=== PATIENT | female | born 1990 | race Caucasian/White ===

== ENCOUNTER 2021-11-15 00:45 | Emergency (ER) | payer OTHER ==
[2021-11-15] MEDS ORDERED: Lidocaine Viscous Sol 2% 15 ml UD Cup ONE (01:12)
[2021-11-15] MEDS ORDERED: Mag-Al Plus 1200 MG/1200 MG/120 MG/30 ML UDCUP ONE (01:12)
[2021-11-15 01:34] LABS: #Eosinphils 0.2 10x3/uL (0.0-0.5); #Monocytes 0.4 10x3/uL (0.0-1.1); #Neutrophils 4.3 10x3/uL (1.5-8.4); %Basophils 0.5 % (0.0-2.0); %Eosinophils 1.9 % (0.0-6.0); %Lymphocytes 37.7 % (18.0-47.0); %Monocytes 4.8 % (0.0-10.0); Hemoglobin 12.8 g/dL (12.0-15.5); Mean Corpuscular HGB CONC 33.7 g/dL (32.0-36.0); Mean Corpuscular Hemoglobin 28.6 pg (27.0-33.0); Mean Corpuscular Volume 84.8 fl (81.6-98.3); Mean Platelet Volume 9.4 fl (7.4-10.4); Platelet Count 285 10x3/uL (150-450); Red Blood Cell (RBC) Count 4.48 10x6/uL (3.90-5.03); White Blood Cell (WBC) Count 7.9 10x3/uL (3.5-10.5)
[2021-11-15 01:39] LABS: BHCG - Serum Negative (NEGATIVE); Pregs Control Background? CLEAR/WHITE (CLR/WHITE); Pregs Control Bar Appear? YES (CONTROL BAR)
[2021-11-15 01:40] LABS: ALT (SGPT) 12 U/L (8-55); AST (SGOT) 12 U/L (5-34); Albumin 4.2 g/dL (3.5-5.0); Alkaline Phosphatase 59 U/L (40-110); Anion Gap 14 mmol/L (10-20); BUN (Urea Nitrogen) 18 mg/dL (7.0-18.7); Bilirubin, Total 0.3 mg/dL (0.2-1.2); Calc. Creatinine Clearance 0 mL/min (70-130); Calcium 8.8 mg/dL (7.8-10.44); Carbon Dioxide 22 mmol/L (22-29); Chloride 107 mmol/L (98-107); Glucose 98 mg/dL (70-105); Lipase 16 U/L (8-78); Potassium 3.6 mmol/L (3.5-5.1); Protein, Total 7.2 g/dL (6.0-8.3); Sodium 139 mmol/L (136-145)
[2021-11-15] MEDS ORDERED: Morphine 4 MG/ML VIAL ONE (01:56)
[2021-11-15] MEDS ORDERED: Ondansetron PF 4 MG/2 ML Vial ONE (01:56)
[2021-11-15] MEDS ORDERED: Acetaminophen 500 MG TAB ONE (02:00)
== END 2021-11-15 04:52 | disposition home or self-care (01) ==
LOC: CSHERS 00:45
DX: N83.202 Unspecified ovarian cyst, left side (principal); R11.0 Nausea; Z79.899 Other long term (current) drug therapy; K21.9 Gastro-esophageal reflux disease without esophagitis; M19.90 Unspecified osteoarthritis, unspecified site; G43.909 Migraine, unspecified, not intractable, without status migrainosus; Z87.891 Personal history of nicotine dependence
CPT/HCPCS: 36415; 74177; 80053; 83690; 84703; 85025; J2270; J2405